=== PATIENT | female | born 1945 | race Caucasian/White ===

== ENCOUNTER → 2016-08-01 | Outpatient (CLI) | payer MEDICARE, BC ==
[~2016-08-01] MED LIST: BACLOFEN10 M1 PO; CALCIUM 600 +1 EAC1 PO; CLARITIN10 M1 PO; FLONASE ALLERG9.9 ML; FLOVENT DI250 MCG/Ac; MOBIC 7.5MG7.5 MG PO; MULTIPLE VITAMI1 TA1 PO; PRILOSEC40 M1 PO; QUALITY CHOICE200 M2 PO; TRAMADOL 50 MG TAB PO
== END ==
LOC: RAD 08:32
DX: M43.06 Spondylolysis, lumbar region (principal)

== ENCOUNTER → 2016-08-11 | Outpatient (CLI) | payer MEDICARE, BC | LOC: RAD 16:14 | DX: M54.16 Radiculopathy, lumbar region (principal); M43.16 Spondylolisthesis, lumbar region ==

== ENCOUNTER 2016-08-20 13:51 | Outpatient (RCR) | payer MEDICARE, BC ==
[2015-11-13 12:45] VITALS: BP 124/74
[~2016-08-20 13:51] MED LIST changes: -BACLOFEN10 M1 PO; -TRAMADOL 50 MG TAB PO
== END 2016-11-18 | disposition home or self-care (01) ==
LOC: PT
DX: M54.16 Radiculopathy, lumbar region (principal)

== ENCOUNTER 2016-10-15 13:57 | Outpatient (RCR) | payer MEDICARE, BC ==
[2015-11-13 12:45] VITALS: BP 124/74
[2016-12-31] MEDS ORDERED: BACLOFEN10 M1 PO (11:02)
[2016-12-31] MEDS ORDERED: TRAMADOL 50 MG TAB PO (11:02)
== END 2017-01-13 | disposition home or self-care (01) ==
LOC: PT
DX: M48.06 Spinal stenosis, lumbar region (principal); M54.16 Radiculopathy, lumbar region

== ENCOUNTER → 2016-12-09 | Outpatient (CLI) | payer MEDICARE, BC ==
[~2016-12-09] VITALS: Ht 152.4 cm; Wt 76.8 kg
[~2016-12-09] MED LIST changes: +BACLOFEN10 M1 PO; +TRAMADOL 50 MG TAB PO
[2016-12-09 14:55] VITALS: BP 150/64
== END ==
LOC: AMSURD 14:09
DX: Z01.811 Encounter for preprocedural respiratory examination (principal); Z01.810 Encounter for preprocedural cardiovascular examination; Z01.812 Encounter for preprocedural laboratory examination; M48.06 Spinal stenosis, lumbar region; Z79.01 Long term (current) use of anticoagulants; E04.2 Nontoxic multinodular goiter

== ENCOUNTER 2016-12-25 13:29 | Inpatient (IN) | payer MEDICARE, BC ==
[~2016-12-25] VITALS: Ht 152.4 cm; Wt 78.8 kg
[~2016-12-25 13:29] MED LIST changes: -BACLOFEN10 M1 PO; -TRAMADOL 50 MG TAB PO
[2016-12-25 15:32] VITALS: BP 129/57
--- NOTE | 2016-12-25 16:04 | NUR ---
received per w/c for swing bed admission to room 306, she comes from [facility] in , awake, alert, talks about inability to tolerate narcotics but takes Tramadol fairly well, also states prior to surgery she had a gradual decline of mobility/stability of legs and was using a walker to increase safety, she states the Surgeon wants her to continue using this until after her follow-up with him, currently has an Aqua-cell dressing to her back, there is no noted drainage on the bandage, breath sounds are clear,-she does have a history of Asthma and states she uses an Inhaler infrequently, no skin issues are noted with the exception of Vitillago, which is generalized, bowel sounds are active and she has not had a BM since surgery.
--- NOTE | 2016-12-25 17:07 | NUR ---
patient up from bed to bathroom, she stands with ease and uses walker appropriately, ambulates steadily, to bathroom, voids then to chair at bedside for dinner,
[2016-12-25 18:20] VITALS: BP 136/67
--- NOTE | 2016-12-25 19:20 | NUR ---
report to Suma KAYE
--- NOTE | 2016-12-25 19:28 | NUR ---
Report received from Tova SALMON. Patient sitting up in chair. A/Ox4. Rates pain to back 6/10. States an acceptable pain is 3/10. Dressing to back CDI. Assessment completed. Assisted to BR with 1 assist. Assisted to bed per request. Bed alarm on. Call light in reach.
--- NOTE | 2016-12-25 20:38 | NUR ---
Scheduled HS medication taken. Gave PRN Sennokot and PRN Ultram at this time. Rests in bed with SCD's in place to BLE. Family in to visit. Denies wants or needs. Bed alarm on. Call light in reach.
--- NOTE | 2016-12-25 23:55 | NUR ---
Rests with eyes closed. No signs of pain or distress. SCD's in place to BLE.
--- NOTE | 2016-12-26 03:10 | NUR ---
Up to the BR with 1 assist. Rates pain 7/10 to back. 2 Tramadol and 1 Tylenol given per her request. Positioned for comfort. Bed alarm and SCD's on. Call light in reach.
[2016-12-26 06:13] VITALS: BP 122/58
--- NOTE | 2016-12-26 06:24 | NUR ---
Scheduled AM medication given. States she is "still hot". Air turned down. Offered fan but declines at this time.
--- NOTE | 2016-12-26 07:10 | NUR ---
Report to Justine SALMON.
--- NOTE | 2016-12-26 07:55 | NUR ---
Pt up to recliner. Reports that she continues to have pain to lower back, reports that "is expected" and "it's better." Reports pain 6/10. Aquacel to mid lower back, no drainage noted.
--- NOTE | 2016-12-26 12:37 | NUR ---
Pt calls requesting baclofen. Inform pt that she still has about an hour for any meds available. Pt agrees to get up and ambulate in halls. Pt reports that this helps to alleviate pain. Inform that this RN will bring pain Rx when available per order.
--- NOTE | 2016-12-26 13:28 | NUR ---
Pt given scheduled baclofen and agrees to try 50mg Tramadol and 325mg Tylenol now and save the remaining tylenol/tramadol for breakthrough pain over the next four hours.
--- NOTE | 2016-12-26 18:42 | NUR ---
Pt's goal is to be able to return to her home where she lives independently w/ her . She may benefit from HH services or OP therapy upon discharge to be determined.
[2016-12-26 18:44] VITALS: BP 133/59
--- NOTE | 2016-12-26 19:45 | NUR ---
Report received from Justine SALMON. Patient sitting in chair with at bedside. Assessment completed. Aquacell intact to back. Rates pain 5/10. Assisted to BR and then for walk with REVENUE COLLECTOR. Tolerated well. Denies fatique, gait steady. Decides against taking Percocet and wants to stick with Tylenol-Ultram schedule for pain control. Denies further wants or needs at this time.
--- NOTE | 2016-12-26 20:38 | NUR ---
Scheduled HS medications taken. PRN Tylenol 325 mg and Ultram 50 MG taken at this time. Verbalizes she would like another combo of this at 2230 before she goes to sleep. In bed, SCD's in place, reading on tablet. Bed alarm on. Call light in reach.
--- NOTE | 2016-12-27 00:08 | NUR ---
Rings call light and states to SALES REPRESENTATIVE [employer] that her back still is hurting. Knows she cannot have pain medication yet but would like some "as soom as available". Repostioned to her side with assist of SALES REPRESENTATIVE [employer].
--- NOTE | 2016-12-27 00:31 | NUR ---
Pain level to back 7/10. States it was about a 9/10 when lying on her back. Agreeable to try a Percocet. Has made her dizzy in the past while she was up and about. Takes with crackers to help with possible stomach upset. Denies further wants or needs.
--- NOTE | 2016-12-27 04:24 | NUR ---
Rests with eyes closed. No signs of pain or distress. Bed alarm on. Call light in reach.
--- NOTE | 2016-12-27 05:48 | NUR ---
Rings call light and requests analgesic for pain to back 5/10. Tylenol and Tramadol 1 tab each taken. States she tolerated the Percocet well last night.
[2016-12-27 06:10] VITALS: BP 115/45
--- NOTE | 2016-12-27 07:46 | NUR ---
Sitting up in chair. Pain to back 4-5/10. Ultram 50 MG and Tylenol 325 MG taken, to stay ahead of the pain. Denies further wants or needs.
--- NOTE | 2016-12-27 08:11 | NUR ---
Report to Shayy SALMON.
--- NOTE | 2016-12-27 08:15 | NUR ---
PT UP IN CHAIR UPON ENTERING ROOM. ALERT AND ORIENTED. COMPLAINS IN PAIN IN BACK AT 3/10. DENIES NEED FOR INTERVENTION FOR PAIN AT THIS TIME. LUNGS CLEAR BOWEL SOUNDS ACTIVE. PT ATE BREAKFAST WITH NO DIFFICULTY. DRESSING TO BACK IS CLEAN DRY AND INTACT. IRRITATION NOTED ABOVE DRESSING. PT UPDATED ON PLAN OF CARE. DENIES NEEDS AT THIS TIME. CALL LIGHT IN REACH.
--- NOTE | 2016-12-27 10:50 | NUR ---
PT UP IN CHAIR READING BOOK. RATES PAIN IN BACK 2/3. DENIES NEEDS AT THIS TIME. CALL LIGHT IN REACH
--- NOTE | 2016-12-27 11:47 | NUR ---
Taj PELAYO RN AT BEDSIDE
[2016-12-27 18:05] VITALS: BP 132/68
--- NOTE | 2016-12-27 18:21 | NUR ---
patient is currently resting in room, she denies further c/o nausea
--- NOTE | 2016-12-27 19:21 | NUR ---
report to Shruti SALMON
--- NOTE | 2016-12-27 19:22 | NUR ---
Report received from Tova Guillermo RN
--- NOTE | 2016-12-27 19:50 | NUR ---
Awake and a/o x 3, resting in recliner. Pt c/o's of back pain. Rates 5-6 out of 10. Knee high Ramy hose on right and left lower leg. Used incentive spirometer, able to reach 1500 x 10. Pt demenstrated proper technique back. See shift assessment.
--- NOTE | 2016-12-27 19:50 | NUR ---
Pt given tramadol 50mg PO and tylenol 325mg PO for pain per pt request.
--- NOTE | 2016-12-27 19:51 | NUR ---
1950 Pt given tramadol 50mg PO and tylenol 325mg PO.
--- NOTE | 2016-12-27 22:45 | NUR ---
2150 Pt did own HS care and oral care. 2199 Ambulated to bed, with one person assist, gait belt on, advertising sales representative socks and used walker. 2240 Pt c/o of lower back pain. Rated pain 5 out of 10. Given tramadol one 50mg and tylenol one 325mg PO.
--- NOTE | 2016-12-27 23:56 | NUR ---
Q hourly checks done. Resting in bed with eyes closed even respirations. Bed alarm on.
--- NOTE | 2016-12-28 02:15 | NUR ---
Q hourly checks done, Bed alarm on. SCD's off. Pt awake and a/o x 3. Ambulated to the bathroom, used walker, gait belt and ct technician socks. Jose Luis RENDON at pt's side. Pt denied having any needs or complaints.
--- NOTE | 2016-12-28 03:35 | NUR ---
Report received from VIKY Reyes.
--- NOTE | 2016-12-28 06:00 | NUR ---
No changes in pt's condition since assuming care at 0330. Pt medicated for pain of 5/10 with Tramadol 50 mg po around 0530. Pt denied any other needs. Fall precautions are in place and call light is within reach.
[2016-12-28 06:22] VITALS: BP 135/54
--- NOTE | 2016-12-28 07:10 | NUR ---
Report given to VIKY Portillo.
--- NOTE | 2016-12-28 07:20 | NUR ---
report received from charley longoria
--- NOTE | 2016-12-28 08:05 | NUR ---
patient sitting up in recliner with legs elevated. shift assessment complete. patient alert and oriented x4. denies any shortness of breath or difficulties breathing. aquacell dressing in place to lower back incision. rates pain in 5/10 in lower back. describes pain as being "achey". requested prn tramadol and tylenol with rest of morning medications. reports not feeling well yesterday but that after having bowel movement. patient's call light within reach. chair alarm on.
--- NOTE | 2016-12-28 18:00 | NUR ---
PATIENT HAS HAD A GOOD DAY TODAY. PATIENT HAS WALKED IN HALLS SEVERAL TIMES TODAY. HAS HAD VISITORS MOST OF THE DAY. PATIENT SITTING UP IN RECLINER. CALL LIGHT WITHIN REACH. CHAIR ALARM ON.
[2016-12-28 18:12] VITALS: BP 147/54
--- NOTE | 2016-12-28 20:20 | NUR ---
Report received from Lindsey SALMON. Patient standing up by recliner with FISH FARMER in room ready to get ready for bed. Rates pain 4/10 to back. Aquacell in place, slightly rolled up on distal end. Will be removed tomorrow per orders. Has a occasional dry cough, discribes as a "tickle" in her throat. States she had a "choking" spell today. Inquired if she has had trouble in the past and she stated "yes, I have an enlarged thyroid". Using I.S. Lungs are CTA all mitchell. Assessment completed. FISH FARMER assisting with changing of her gown and HS cares.
--- NOTE | 2016-12-28 21:49 | NUR ---
Requests and given 2 Tramadol PO at this time for back pain 11/26. Remains sitting up in recliner reading on her tablet. Denies further wants or needs at this time.
--- NOTE | 2016-12-28 22:33 | NUR ---
Using I.S. which elicites a cough. States "its a tickly cough in my throat". Offered warm salt rinse, Hot tea or warm water with honey. Patient elects to try hot tea at this time.
--- NOTE | 2016-12-29 00:22 | NUR ---
Rests on right side with eyes closed. No signs of pain or distress. Bed alarm on. Call light in reach.
--- NOTE | 2016-12-29 06:01 | NUR ---
Scheduled AM medication taken at this time. States it took her awhile to get to sleep but when she did, she slept well. Rates pain 3/10 to back. Denies need for analgesic at this time. Bed alarm on. Call light in reach.
[2016-12-29 06:10] VITALS: BP 131/56
--- NOTE | 2016-12-29 07:23 | NUR ---
Report to Tova SALMON
--- NOTE | 2016-12-29 07:24 | NUR ---
report from Suma KAYE
--- NOTE | 2016-12-29 08:10 | NUR ---
up in chair at [facility], takes breakfast, currently without compliant or request
--- NOTE | 2016-12-29 09:46 | NUR ---
currently rests in bed after showering, in an attempt to allow steri-strips to dry thoroughly, incision is clean-edges well approximated, she expresses eagerness to DC to home this
--- NOTE | 2016-12-29 14:00 | NUR ---
1400 Lioresal held per patient request.
[2016-12-29 18:05] VITALS: BP 142/59
--- NOTE | 2016-12-29 19:25 | NUR ---
report to Suma KAYE
--- NOTE | 2016-12-29 19:47 | NUR ---
Report received from Tova SALMON. Patient resting supine in bed. Had ambulated in ibarra with BLADDER TIER. Tolerated well, states she "got a little winded". Rates pain to back 2/10. Would like Tylenol with HS medications. Assessment completed. Steri-strips intact to back incision. Well approximated. Denies wants or needs.
--- NOTE | 2016-12-30 00:17 | NUR ---
Resting with eyes closed. No signs of pain or distress. Bed alarm on. Call light in reach.
--- NOTE | 2016-12-30 02:39 | NUR ---
Awakens with a "nagging little back ache" Rates 4/. Requests and give Tylenol 650 MG. Denies further wants or needs.
--- NOTE | 2016-12-30 06:10 | NUR ---
Awaken for scheduled AM medication. States she got back to sleep after the Tylenol last night and "slept pretty hard". Rates pain to back 2/10. Assisted up to BR with 1 assist and walker.
[2016-12-30 06:17] VITALS: BP 130/57
--- NOTE | 2016-12-30 07:13 | NUR ---
Report to Justine SALMON.
--- NOTE | 2016-12-30 09:30 | NUR ---
Pt sitting up in recliner. Reports pain 5/10 to lower back. Pt requested PRN pain Rx this AM. Incision to mid/lower back COUNTER HELPER with 3 steri-strips in place to distal end. No drainage noted. Pt reports that her underwear elastic rubs slightly on incision but does not want it covered at this time.
[2016-12-30 18:09] VITALS: BP 145/70
--- NOTE | 2016-12-30 19:16 | NUR ---
Report received from Justine Ricci RN
--- NOTE | 2016-12-30 20:31 | NUR ---
At 2019 Pt resting in recliner, awake and a/o x 3. C/o's of having back pain. Rates 4 out of 10. Incision to low back, CDI and well approximated. No drainage noted. 4 steri-strips noted over incision. See shift asssessment. 2024 arrived, sitting with pt.
--- NOTE | 2016-12-30 21:00 | NUR ---
Pt did own HS care and oral care. Ambulate to bed, with one assist. Used walker, gait belt and shoes on. Pt refused SCD's.
--- NOTE | 2016-12-31 00:30 | NUR ---
Q hourly checks done. Resting in bed, eyes closed even Respirations. Bed alarm on.
--- NOTE | 2016-12-31 04:01 | NUR ---
Continues to rest in bed, eyes closed, even respirations. Bed alarm on. Pt ambulated to bathroom x 1.
[2016-12-31 06:11] VITALS: BP 148/58
--- NOTE | 2016-12-31 07:10 | NUR ---
Report given to Justine Ricci RN
--- NOTE | 2016-12-31 10:36 | NUR ---
Pt has signed BIPA form yesterday, 04-01-17, and she and family are in agreement w/ her discharge to home on 04-03-17. She is refusing HH services at this time as her will always nearby, farming on their property and her grandaughter will be staying w/ her. She states that she will consider OP therapy after neurosurgeon releases her to do therapy.
[2016-12-31] MEDS ORDERED: TRAMADOL 50 MG TAB PO (11:02)
[2016-12-31] MEDS ORDERED: BACLOFEN10 M1 PO (11:02)
--- NOTE | 2016-12-31 12:47 | NUR ---
Pt has had walker ordered from [facility], per her choice, that will fit her height and weight. It is ordered for expected lifetime need.
[2016-12-31 18:07] VITALS: BP 144/63
--- NOTE | 2016-12-31 19:15 | NUR ---
Report received from Justine Ricci RN
--- NOTE | 2016-12-31 20:30 | NUR ---
Awake and a/o x 3. Resting in recliner. Denies pain or discomfort. See shift assessment. Offered pt evening snack, pt refused. Call light system reviewed with pt. Pt reminded to use call light when needing to get up. Pt agreed.
--- NOTE | 2016-12-31 22:30 | NUR ---
Pt did own HS care and oral care. Ambulated in room using walker, gait belt and shoes on. EMERGENCY COMMUNICATIONS DISPATCHER at pt's side. Ambulated to bed, transfered self without difficulty. Refused SCD's. Bed alarm set.
--- NOTE | 2017-01-01 01:53 | NUR ---
Q hourly checks done. Resting in bed with eyes closed, even respirations. Bed alarm on. Has ambulated x 1 to bathroom with MOLD CHANGER at side. Used walker, gait belt and sales executive insurance socks on. Gait steady. Pt has used call light.
[2017-01-01 06:02] VITALS: BP 138/46
--- NOTE | 2017-01-01 06:36 | NUR ---
Awake and a/o x 3. C/o's of having pain in back. States "Its more soreness." Rates pain 1-2 out 10. Pt given tylenol 650mg PO.
--- NOTE | 2017-01-01 07:00 | NUR ---
Report given to Lindsey Davila RN
--- NOTE | 2017-01-01 07:15 | NUR ---
REPORT RECEIVED FROM VIKY MARKS
--- NOTE | 2017-01-01 07:45 | NUR ---
PATIENT SITTING UP IN RECLINER. SHIFT ASSESSMENT COMPLETE. PATIENT ALERT AND ORIENTED X4. REPORTS HAVING PAIN IN LOWER BACK RATED 1/10. REPORTS PAIN IS IMPROVED AFTER RECEIVING TYLENOL. DENIES SHORTNESS OF BREATH OR DIFFICULTIES BREATHING. INCISION TO LOWER BACK WELL APPROXIMATED WITH STERI STRIPS IN PLACE,OPEN TO AIR. NO DRAINAGE NOTED. NO SIGNS OF INFECTION NOTED AT THIS TIME. PLAN IS FOR PATIENT TO BE DISCHARGED HOME THIS MORNING. PATIENT REPORTS FAMILY WILL BE HERE AROUND 0930 THIS MORNING. DENIES ANY NEEDS FROM THE NURSE AT THIS TIME. CALL LIGHT WITHIN REACH.
--- NOTE | 2017-01-01 10:00 | NUR ---
PATIENT PROVIDED DISCHARGE INSTRUCTIONS AT THIS TIME. PATIENT'S IN ROOM. PATIENT AND EDUCATED ON CARE FOR INCISION TO BACK AND SIGNS OF INFECTION. VERBALIZED UNDERSTANDING OF INSTRUCTIONS. DENIES ANY QUESTIONS FOR THE NURSE AT THIS TIME.
--- NOTE | 2017-01-01 10:07 | NUR ---
PATIENT LEFT FACILITY TO POV AT THIS TIME. PATIENT ACCOMPANIED BY THIS NURSE AND . PERSONAL BELONGINGS AND DISCHARGE PAPERWORK SENT WITH .
== END 2017-01-01 10:07 | disposition home or self-care (01) | DRG 950 ==
LOC: MED/SURG 13:29
PROVIDERS: ADMIT Physician Assistant
DX: Z48.89 Encounter for other specified surgical aftercare (principal); Z98.1 Arthrodesis status; R53.81 Other malaise; I73.9 Peripheral vascular disease, unspecified; K21.9 Gastro-esophageal reflux disease without esophagitis
CPT/HCPCS: J1650

== ENCOUNTER → 2017-01-13 | Outpatient (CLI) | payer MEDICARE, BC ==
[2017-01-01 06:02] VITALS: BP 138/46
[~2017-01-13] MED LIST changes: +BACLOFEN10 M1 PO; +TRAMADOL 50 MG TAB PO
== END ==
LOC: LAB 08:08
DX: T81.4XXA Infection following a procedure, initial encounter (principal); E04.2 Nontoxic multinodular goiter

== ENCOUNTER → 2017-01-16 | Outpatient (CLI) | payer MEDICARE, BC ==
[2017-01-01 06:02] VITALS: BP 138/46
== END ==
LOC: RAD 09:44
DX: E04.0 Nontoxic diffuse goiter (principal); R13.10 Dysphagia, unspecified; E04.1 Nontoxic single thyroid nodule

== ENCOUNTER → 2017-01-29 | Outpatient (CLI) | payer MEDICARE, BC ==
[2017-01-01 06:02] VITALS: BP 138/46
== END ==
LOC: LAB 10:45
DX: E04.2 Nontoxic multinodular goiter (principal)

== ENCOUNTER → 2017-08-11 | Outpatient (CLI) | payer MEDICARE, BC ==
[2017-08-12 18:26] LABS: T3 TOTAL 104 ng/dL (87-178)
== END ==
LOC: LAB 16:53
PROVIDERS: Internal Medicine
DX: E05.20 Thyrotoxicosis with toxic multinodular goiter without thyrotoxic crisis or storm (principal)

== ENCOUNTER → 2017-10-09 | Outpatient (CLI) | payer MEDICARE, BC ==
[2017-10-10 01:09] LABS: T3 TOTAL 144 ng/dL (87-178)
== END ==
LOC: LAB 10:48
PROVIDERS: Internal Medicine
DX: E05.20 Thyrotoxicosis with toxic multinodular goiter without thyrotoxic crisis or storm (principal); Z88.5 Allergy status to narcotic agent; Z88.8 Allergy status to other drugs, medicaments and biological substances; Z88.1 Allergy status to other antibiotic agents; Z91.041 Radiographic dye allergy status

== ENCOUNTER → 2017-11-10 | Outpatient (CLI) | payer MEDICARE, BC ==
[2017-11-10 23:50] LABS: T3 TOTAL 94 ng/dL (87-178)
== END ==
LOC: LAB 11:13
PROVIDERS: Internal Medicine
DX: E05.20 Thyrotoxicosis with toxic multinodular goiter without thyrotoxic crisis or storm (principal); Z88.5 Allergy status to narcotic agent; Z88.6 Allergy status to analgesic agent; Z88.1 Allergy status to other antibiotic agents; Z91.041 Radiographic dye allergy status

== ENCOUNTER → 2017-12-09 | Outpatient (CLI) | payer MEDICARE, BC ==
[2017-12-10 01:51] LABS: T3 TOTAL 114 ng/dL (87-178)
== END ==
LOC: LAB 13:02
PROVIDERS: Internal Medicine
DX: E05.20 Thyrotoxicosis with toxic multinodular goiter without thyrotoxic crisis or storm (principal)

== ENCOUNTER → 2018-01-14 | Outpatient (CLI) | payer MEDICARE, BC ==
[2018-01-14 22:52] LABS: T3 TOTAL 165 ng/dL (87-178)
== END ==
LOC: LAB 14:09
PROVIDERS: Internal Medicine
DX: E05.20 Thyrotoxicosis with toxic multinodular goiter without thyrotoxic crisis or storm (principal)

== ENCOUNTER → 2018-02-12 | Outpatient (CLI) | payer MEDICARE, BC ==
[2018-02-13 02:13] LABS: T3 TOTAL 167 ng/dL (87-178)
== END ==
LOC: LAB 14:55
PROVIDERS: Internal Medicine
DX: E05.20 Thyrotoxicosis with toxic multinodular goiter without thyrotoxic crisis or storm (principal)

== ENCOUNTER → 2018-04-05 | Outpatient (CLI) | payer MEDICARE, BC | LOC: LAB 08:46 | PROVIDERS: Internal Medicine Endocrinology, Diabetes & Metabolism | DX: E05.90 Thyrotoxicosis, unspecified without thyrotoxic crisis or storm (principal) ==

== ENCOUNTER → 2018-05-05 | Outpatient (CLI) | payer MEDICARE, BC ==
[2018-05-06 00:22] LABS: T3 TOTAL 112 ng/dL (87-178)
== END ==
LOC: LAB 10:11
PROVIDERS: Internal Medicine Endocrinology, Diabetes & Metabolism
DX: E05.20 Thyrotoxicosis with toxic multinodular goiter without thyrotoxic crisis or storm (principal); E05.90 Thyrotoxicosis, unspecified without thyrotoxic crisis or storm

== ENCOUNTER → 2019-09-27 | Outpatient (CLI) | payer MEDICARE, BC ==
[2019-09-27 10:41] LABS: EOS # 0.2 (0.04-0.40); EOS % 3.5 % (1.0-5.0); HEMATOCRIT 40.7 % (37.0-47.0); HEMOGLOBIN 13.3 g/dL (12.5-16.0); LYMPH# 1.5 (1.50-4.00); MEAN CELL VOLUME 89 fl (78-100); MEAN CORPUSCULAR HEMOGLOBIN 29 pg (27-31); MEAN CORPUSCULAR HGB CONC 33 g/dL (33-37); MEAN PLATELET VOLUME 10.3 fl (7.4-10.4); MONO # 0.5 (0.20-0.80); NEU # 4.3 (1.40-6.50); PLATELET COUNT 214 K/mm3 (130-400); RED BLOOD COUNT 4.59 M/mm3 (4.10-5.30); RED CELL DISTRIBUTION WIDTH 13.9 % (11.5-14.5); WHITE BLOOD COUNT 6.6 K/mm3 (4.8-10.8)
[2019-09-27 10:45] LABS: ALBUMIN 4.2 g/dL (3.4-4.8); POTASSIUM 4.2 mmol/L (3.5-5.1)
[2019-09-27 10:46] LABS: CALCIUM 9.7 mg/dL (8.3-10.5)
[2019-09-27 10:47] LABS: TOTAL PROTEIN 6.5 g/dL (6.2-8.1)
[2019-09-27 10:49] LABS: TOTAL BILIRUBIN 0.5 mg/dL (0.2-1.2)
[2019-09-27 11:40] LABS: ERYTHROCYTE SEDIMENTATION RATE 16 mm/hr (0-30)
== END ==
LOC: LAB 10:22
PROVIDERS: Internal Medicine
DX: Z12.11 Encounter for screening for malignant neoplasm of colon (principal); J45.20 Mild intermittent asthma, uncomplicated; E78.2 Mixed hyperlipidemia

== ENCOUNTER → 2019-12-13 | Outpatient (CLI) | payer MEDICARE, BC | LOC: MAMMO 13:00 | DX: Z12.31 Encounter for screening mammogram for malignant neoplasm of breast (principal); M85.80 Other specified disorders of bone density and structure, unspecified site ==

== ENCOUNTER → 2019-12-13 | Outpatient (CLI) | payer MEDICARE, BC | LOC: MAMMO 12:59 | DX: Z12.31 Encounter for screening mammogram for malignant neoplasm of breast (principal); Z13.820 Encounter for screening for osteoporosis; M81.0 Age-related osteoporosis without current pathological fracture; M85.80 Other specified disorders of bone density and structure, unspecified site ==

== ENCOUNTER → 2020-01-30 | Outpatient (CLI) | payer MEDICARE, BC ==
[2020-01-30 11:49] LABS: EOS # 0.4 (0.04-0.40); EOS % 4.9 % (1.0-5.0); HEMATOCRIT 40.5 % (37.0-47.0); HEMOGLOBIN 13.5 g/dL (12.5-16.0); LYMPH# 1.7 (1.50-4.00); MEAN CELL VOLUME 88 fl (78-100); MEAN CORPUSCULAR HEMOGLOBIN 30 pg (27-31); MEAN CORPUSCULAR HGB CONC 33 g/dL (33-37); MEAN PLATELET VOLUME 10.1 fl (7.4-10.4); MONO # 0.5 (0.20-0.80); NEU # 5.3 (1.40-6.50); PLATELET COUNT 215 K/mm3 (130-400); RED BLOOD COUNT 4.58 M/mm3 (4.10-5.30); RED CELL DISTRIBUTION WIDTH 13.6 % (11.5-14.5)
[2020-01-30 12:01] LABS: ALBUMIN 4.2 g/dL (3.4-4.8); POTASSIUM 4.2 mmol/L (3.5-5.1)
[2020-01-30 12:02] LABS: CALCIUM 9.2 mg/dL (8.3-10.5)
[2020-01-30 12:03] LABS: TOTAL PROTEIN 7.2 g/dL (6.2-8.1)
[2020-01-30 12:05] LABS: TOTAL BILIRUBIN 0.3 mg/dL (0.2-1.2)
== END ==
LOC: RAD 11:40
PROVIDERS: Internal Medicine
DX: J45.20 Mild intermittent asthma, uncomplicated (principal); J20.9 Acute bronchitis, unspecified; J01.00 Acute maxillary sinusitis, unspecified

== ENCOUNTER → 2020-02-20 | Outpatient (CLI) | payer MEDICARE, BC ==
[2020-02-20 22:24] LABS: CORTISOL RANDOM 7 ug/dL (3-20)
== END ==
LOC: LAB 12:24
PROVIDERS: Internal Medicine
DX: M81.0 Age-related osteoporosis without current pathological fracture (principal)

== ENCOUNTER → 2020-04-10 | Outpatient (CLI) | payer MEDICARE, BC ==
[2020-04-10 08:56] LABS: EOS # 0.5 (0.04-0.40); EOS % 6.4 % (1.0-5.0); HEMATOCRIT 42.4 % (37.0-47.0); HEMOGLOBIN 13.9 g/dL (12.5-16.0); LYMPH# 1.4 (1.50-4.00); MEAN CELL VOLUME 89 fl (78-100); MEAN CORPUSCULAR HEMOGLOBIN 29 pg (27-31); MEAN CORPUSCULAR HGB CONC 33 g/dL (33-37); MEAN PLATELET VOLUME 10.6 fl (7.4-10.4); MONO # 0.5 (0.20-0.80); NEU # 5.2 (1.40-6.50); PLATELET COUNT 203 K/mm3 (130-400); RED BLOOD COUNT 4.77 M/mm3 (4.10-5.30); RED CELL DISTRIBUTION WIDTH 13.9 % (11.5-14.5); WHITE BLOOD COUNT 7.7 K/mm3 (4.8-10.8)
[2020-04-10 09:05] LABS: ALBUMIN 4.2 g/dL (3.4-4.8); POTASSIUM 3.9 mmol/L (3.5-5.1)
[2020-04-10 09:06] LABS: CALCIUM 9.1 mg/dL (8.3-10.5)
[2020-04-10 09:07] LABS: TOTAL PROTEIN 6.8 g/dL (6.2-8.1)
[2020-04-10 09:09] LABS: TOTAL BILIRUBIN 0.3 mg/dL (0.2-1.2)
[2020-04-10 09:58] LABS: ERYTHROCYTE SEDIMENTATION RATE 17 mm/hr (0-30)
== END ==
LOC: RAD 08:35
PROVIDERS: Internal Medicine
DX: J45.909 Unspecified asthma, uncomplicated (principal); J20.9 Acute bronchitis, unspecified; J01.00 Acute maxillary sinusitis, unspecified

== ENCOUNTER → 2021-01-15 | Outpatient (CLI) | payer MEDICARE, BC ==
[~2021-01-15] MED LIST changes: +ALENDRONATE SOD70 MG PO; +MELOXICAM15 MG PO; +OMEPRAZOLE40 MG PO; +SINGULAIR 110 MG/TAB PO
== END ==
LOC: LAB 09:41
DX: E04.0 Nontoxic diffuse goiter (principal)

== ENCOUNTER 2021-02-04 10:39 | Emergency (ER) | payer MEDICARE, BC ==
[~2021-02-04 10:39] MED LIST changes: -ALENDRONATE SOD70 MG PO; -MELOXICAM15 MG PO; -OMEPRAZOLE40 MG PO; -SINGULAIR 110 MG/TAB PO
[2021-02-04] MEDS ORDERED: ALENDRONATE SOD70 MG PO (10:54)
[2021-02-04] MEDS ORDERED: OMEPRAZOLE40 MG PO (10:55)
[2021-02-04] MEDS ORDERED: MELOXICAM15 MG PO (10:55)
[2021-02-04] MEDS ORDERED: SINGULAIR 110 MG/TAB PO (10:55)
[2021-02-04 11:10] LABS: BASO # 0.05 (0.02-0.10); EOS # 0.17 (0.04-0.40); EOS % 1.9 % (1.0-5.0); HEMATOCRIT 40.1 % (37.0-47.0); HEMOGLOBIN 13.1 g/dL (12.5-16.0); LYMPH# 1.38 (1.50-4.00); MEAN CELL VOLUME 90 fl (78-100); MEAN CORPUSCULAR HEMOGLOBIN 29 pg (27-31); MEAN CORPUSCULAR HGB CONC 33 g/dL (33-37); MEAN PLATELET VOLUME 10.2 fl (7.4-10.4); MONO # 0.72 (0.20-0.80); NEU # 6.79 (1.40-6.50); PLATELET COUNT 201 K/mm3 (130-400); RED BLOOD COUNT 4.47 M/mm3 (4.10-5.30); RED CELL DISTRIBUTION WIDTH 13.6 % (11.5-14.5); WHITE BLOOD COUNT 9.2 K/mm3 (4.8-10.8)
[2021-02-04 11:35] LABS: ALBUMIN 3.9 g/dL (3.4-4.8); POTASSIUM 4.7 mmol/L (3.5-5.1); SODIUM 139 mmol/L (136-145)
[2021-02-04 11:36] LABS: CALCIUM 9.6 mg/dL (8.3-10.5)
[2021-02-04 11:37] LABS: GLUCOSE 94 mg/dL (65-105)
[2021-02-04 11:38] LABS: TOTAL PROTEIN 6.6 g/dL (6.2-8.1)
[2021-02-04 11:39] LABS: CARBON DIOXIDE 24 mmol/L (23-31); TOTAL BILIRUBIN 0.6 mg/dL (0.2-1.2)
[2021-02-04 11:43] LABS: AST-SGOT 14 U/L (5-34)
[2021-02-04 11:44] LABS: ALT/SGPT 15 U/L (0-55)
[2021-02-04 11:45] LABS: LIPASE 19 U/L (8-78)
[2021-02-04 11:51] LABS: PARTIAL THROMBOPLASTIN TIME 24.4 SECONDS (21.0-32.0); PROTHROMBIN TIME 9.1 SECONDS (9.0-12.0)
[2021-02-04 12:26] LABS: PH-URINE 6.5 (5.0 - 8.0); URINE APPEARANCE CLEAR; URINE COLOR YELLOW
[2021-02-04 12:27] LABS: URINE BILIRUBIN NEGATIVE (NEGATIVE); URINE BLOOD NEGATIVE (NEGATIVE); URINE GLUCOSE NEGATIVE (NEGATIVE); URINE KETONE NEGATIVE (NEGATIVE); URINE LEUKOCYTE ESTERASE NEGATIVE (NEGATIVE); URINE NITRATE NEGATIVE (NEGATIVE); URINE PROTEIN(semi-quant) NEGATIVE (NEGATIVE); URINE UROBILINOGEN NORMAL (NORMAL); URINE WBC 0-1 /hpf (0-3)
[2021-02-04 12:41] LABS: TROPONIN-I < 0.03 ng/mL (<0.030)
[2021-02-04 15:47] VITALS: BP 148/72
== END 2021-02-04 15:03 | disposition home or self-care (01) ==
LOC: ED 10:39
PROVIDERS: Nurse Practitioner
DX: F41.9 Anxiety disorder, unspecified (principal); I25.10 Atherosclerotic heart disease of native coronary artery without angina pectoris; J45.909 Unspecified asthma, uncomplicated; K21.9 Gastro-esophageal reflux disease without esophagitis; E04.9 Nontoxic goiter, unspecified; Z79.51 Long term (current) use of inhaled steroids; Z79.899 Other long term (current) drug therapy

== ENCOUNTER → 2021-12-09 | Outpatient (CLI) | payer MEDICARE, BC ==
[~2021-12-09] MED LIST changes: +ALENDRONATE SOD70 MG PO; +MELOXICAM15 MG PO; +OMEPRAZOLE40 MG PO; +SINGULAIR 110 MG/TAB PO
[2021-12-09 12:04] LABS: BASO # 0.05 K/mm3 (0.02-0.10); EOS # 0.17 K/mm3 (0.04-0.40); EOS % 2.2 % (1.0-5.0); HEMATOCRIT 40.9 % (37.0-47.0); HEMOGLOBIN 13.7 g/dL (12.5-16.0); LYMPH# 1.82 K/mm3 (1.50-4.00); MEAN CELL VOLUME 89 fl (78-100); MEAN CORPUSCULAR HEMOGLOBIN 30 pg (27-31); MEAN CORPUSCULAR HGB CONC 34 g/dL (33-37); MEAN PLATELET VOLUME 9.4 fl (7.4-10.4); MONO # 0.49 K/mm3 (0.20-0.80); NEU # 5.19 K/mm3 (1.40-6.50); PLATELET COUNT 221 K/mm3 (130-400); RED BLOOD COUNT 4.58 M/mm3 (4.10-5.30); RED CELL DISTRIBUTION WIDTH 13.4 % (11.5-14.5); WHITE BLOOD COUNT 7.7 K/mm3 (4.8-10.8)
[2021-12-09 12:10] LABS: ALBUMIN 4.2 g/dL (3.4-4.8); POTASSIUM 4.2 mmol/L (3.5-5.1)
[2021-12-09 12:12] LABS: TOTAL PROTEIN 6.7 g/dL (6.2-8.1)
[2021-12-09 12:13] LABS: PROTHROMBIN TIME 9.7 SECONDS (9.0-12.0)
[2021-12-09 12:14] LABS: TOTAL BILIRUBIN 0.5 mg/dL (0.2-1.2)
[2021-12-09 12:19] LABS: MAGNESIUM 2.04 mg/dL (1.60-2.60)
[2021-12-09 13:19] LABS: URINE APPEARANCE CLEAR; URINE COLOR LT YELLOW
[2021-12-09 13:20] LABS: URINE BILIRUBIN NEGATIVE (NEGATIVE); URINE BLOOD NEGATIVE (NEGATIVE); URINE GLUCOSE NEGATIVE (NEGATIVE); URINE KETONE NEGATIVE (NEGATIVE); URINE LEUKOCYTE ESTERASE NEGATIVE (NEGATIVE); URINE NITRATE NEGATIVE (NEGATIVE); URINE PROTEIN(semi-quant) NEGATIVE (NEGATIVE); URINE UROBILINOGEN NORMAL (NORMAL); URINE WBC 0-1 /hpf (0-3)
== END ==
LOC: LAB 11:34
PROVIDERS: Internal Medicine
DX: Z01.811 Encounter for preprocedural respiratory examination (principal)

== ENCOUNTER → 2023-10-02 | Outpatient (CLI) | payer MEDICARE, BC | LOC: RAD 06:50 | DX: K11.8 Other diseases of salivary glands (principal) ==

== ENCOUNTER → 2023-12-11 | Outpatient (CLI) | payer MEDICARE, BC ==
[2024-02-02 11:30] LABS: CALCIUM 9.7 mg/dL (8.3-10.5); MAGNESIUM 1.98 mg/dL (1.60-2.60); TOTAL BILIRUBIN 0.4 mg/dL (0.2-1.2); TOTAL PROTEIN 6.5 g/dL (6.2-8.1)
[2024-02-02 11:35] LABS: BASO # 0.03 K/mm3 (0.02-0.10); EOS # 0.19 K/mm3 (0.04-0.40); HEMATOCRIT 38.3 % (37.0-47.0); LYMPH# 1.24 K/mm3 (1.50-4.00); MEAN CELL VOLUME 85 fl (78-100); MEAN CORPUSCULAR HEMOGLOBIN 27 pg (27-31); MEAN CORPUSCULAR HGB CONC 31 g/dL (33-37); MONO # 0.47 K/mm3 (0.20-0.80); NEU # 4.47 K/mm3 (1.40-6.50); PLATELET COUNT 237 K/mm3 (130-400); RED BLOOD COUNT 4.49 M/mm3 (4.10-5.30); RED CELL DISTRIBUTION WIDTH 15.2 % (11.5-14.5); WHITE BLOOD COUNT 6.4 K/mm3 (4.8-10.8)
[2024-02-02 11:37] LABS: PH-URINE 6.5 (5.0 - 8.0); URINE APPEARANCE CLEAR (CLEAR); URINE COLOR YELLOW (YELLOW); URINE GLUCOSE NEGATIVE (NEGATIVE); URINE PROTEIN(semi-quant) NEGATIVE (NEGATIVE)
[2024-02-02 11:38] LABS: URINE BILIRUBIN NEGATIVE (NEGATIVE); URINE BLOOD NEGATIVE (NEGATIVE); URINE KETONE NEGATIVE (NEGATIVE); URINE LEUKOCYTE ESTERASE TRACE (NEGATIVE); URINE NITRATE NEGATIVE (NEGATIVE); URINE WBC 0-1 /hpf (0-3)
== END ==
LOC: LAB 12:11
PROVIDERS: Internal Medicine
DX: Z12.11 Encounter for screening for malignant neoplasm of colon (principal); E78.2 Mixed hyperlipidemia; M81.0 Age-related osteoporosis without current pathological fracture; E05.20 Thyrotoxicosis with toxic multinodular goiter without thyrotoxic crisis or storm; I10 Essential (primary) hypertension; K90.9 Intestinal malabsorption, unspecified

== ENCOUNTER → 2024-01-25 | Outpatient (CLI) | payer MEDICARE, BC | LOC: MAMMO 10:23 | DX: Z12.31 Encounter for screening mammogram for malignant neoplasm of breast (principal) ==

== ENCOUNTER → 2024-02-08 | Outpatient (CLI) | payer MEDICARE, BC ==
[2024-02-08 08:49] LABS: BASO # 0.03 K/mm3 (0.02-0.10); EOS # 0.27 K/mm3 (0.04-0.40); EOS % 3.9 % (1.0-5.0); HEMATOCRIT 36.6 % (37.0-47.0); HEMOGLOBIN 11.6 g/dL (12.5-16.0); LYMPH# 1.28 K/mm3 (1.50-4.00); MEAN CELL VOLUME 87 fl (78-100); MEAN CORPUSCULAR HEMOGLOBIN 28 pg (27-31); MEAN CORPUSCULAR HGB CONC 32 g/dL (33-37); MEAN PLATELET VOLUME 10.5 fl (7.4-10.4); NEU # 4.79 K/mm3 (1.40-6.50); PLATELET COUNT 171 K/mm3 (130-400); RED BLOOD COUNT 4.21 M/mm3 (4.10-5.30); RED CELL DISTRIBUTION WIDTH 14.8 % (11.5-14.5); WHITE BLOOD COUNT 6.9 K/mm3 (4.8-10.8)
== END ==
LOC: LAB 08:38
PROVIDERS: Internal Medicine
DX: E61.1 Iron deficiency (principal)

== ENCOUNTER → 2024-03-14 | Day surgery (SDC) | payer MEDICARE, BC ==
[~2024-03-14] MED LIST changes: +Lidocaine PF 2% (20 MG/ML) 5 ML VIAL ONE
== END | disposition home or self-care (01) ==
LOC: MSO 10:16
DX: D50.9 Iron deficiency anemia, unspecified (principal); K21.9 Gastro-esophageal reflux disease without esophagitis; Z79.899 Other long term (current) drug therapy
CPT/HCPCS: 00731; J2704; J7120

== ENCOUNTER → 2024-08-11 | Outpatient (CLI) | payer MEDICARE, BC ==
[~2024-08-11] MED LIST changes: -Lidocaine PF 2% (20 MG/ML) 5 ML VIAL ONE
[2024-08-11 16:06] LABS: BASO # 0.03 K/mm3 (0.02-0.10); EOS % 2.4 % (1.0-5.0); HEMATOCRIT 38.4 % (37.0-47.0); HEMOGLOBIN 12.5 g/dL (12.5-16.0); LYMPH# 1.45 K/mm3 (1.50-4.00); MEAN CELL VOLUME 88 fl (78-100); MEAN CORPUSCULAR HEMOGLOBIN 29 pg (27-31); MEAN CORPUSCULAR HGB CONC 33 g/dL (33-37); MONO # 0.64 K/mm3 (0.20-0.80); NEU # 5.83 K/mm3 (1.40-6.50); PLATELET COUNT 231 K/mm3 (130-400); RED BLOOD COUNT 4.37 M/mm3 (4.10-5.30); RED CELL DISTRIBUTION WIDTH 14.5 % (11.5-14.5); WHITE BLOOD COUNT 8.2 K/mm3 (4.8-10.8)
[2024-08-11 16:15] LABS: ALBUMIN 4.1 g/dL (3.4-4.8)
[2024-08-11 16:16] LABS: CALCIUM 10.2 mg/dL (8.3-10.5)
[2024-08-11 16:17] LABS: TOTAL PROTEIN 6.9 g/dL (6.2-8.1)
[2024-08-11 16:19] LABS: TOTAL BILIRUBIN 0.3 mg/dL (0.2-1.2)
[2024-08-11 16:24] LABS: MAGNESIUM 1.92 mg/dL (1.60-2.60)
== END ==
LOC: LAB 15:46
PROVIDERS: Internal Medicine
DX: E78.2 Mixed hyperlipidemia (principal); E61.1 Iron deficiency; K90.9 Intestinal malabsorption, unspecified; R73.9 Hyperglycemia, unspecified

== ENCOUNTER → 2024-08-24 | Outpatient (CLI) | payer MEDICARE, BC | LOC: VAS 16:16 → RAD 16:30 | DX: R06.00 Dyspnea, unspecified (principal) ==

== ENCOUNTER → 2024-08-24 | Outpatient (CLI) | payer MEDICARE, BC | LOC: CARDREHAB 08:00 | DX: G47.19 Other hypersomnia (principal) | CPT/HCPCS: G0399 ==